=== PATIENT | female | born 1965 | race Caucasian/White ===

== ENCOUNTER 2019-03-16 19:08 | Emergency (ER) | payer OTHER ==
[~2019-03-16] VITALS: Ht 154.9 cm; Wt 57.2 kg
[2019-03-16 19:30] VITALS: Ht 154.9 cm; Wt 57.2 kg
[2019-03-16 20:45] VITALS: BP 101/59
== END 2019-03-16 20:45 | disposition home or self-care (01) ==
LOC: ED 19:08
DX: N39.0 Urinary tract infection, site not specified (principal); M79.10 Myalgia, unspecified site; E03.9 Hypothyroidism, unspecified
CPT/HCPCS: J1885

== ENCOUNTER 2019-04-08 14:28 | Emergency (ER) | payer OTHER ==
[~2019-04-08] VITALS: Ht 160 cm; Wt 77.6 kg
[2019-04-08 14:32] VITALS: Ht 160 cm; Wt 77.6 kg
[2019-04-08 16:50] LABS: BASOPHIL % 0.5 % (0-2); PLATELET COUNT 247 x10^3mcL (130-400); RED CELL DISTRIBUTION WIDTH 12.3 % (11.5-14.5)
[2019-04-08 16:53] LABS: CALCIUM 8.9 mg/dL (8.5-10.1); CARBON DIOXIDE 27.5 mmol/L (21-32); CHLORIDE SERUM 105 mmol/L (98-107); CREATININE SERUM 0.7 mg/dL (0.6-1.0); GFR1 > 60 mL/min; GLUCOSE SERUM 87 mg/dL (74-106); SODIUM SERUM 140 mmol/L (136-145)
[2019-04-08 16:57] LABS: ALBUMIN 3.6 g/dL (3.4-5.0); ALKALINE PHOSPHATASE 75 U/L (46-116); ALT/SGPT 26 U/L (14-59); AST/SGOT 21 U/L (15-37); BILIRUBIN TOTAL 0.3 mg/dL (0.20-1.00); TOTAL PROTEIN, SERUM 7.2 g/dL (6.4-8.2)
[2019-04-08 18:32] VITALS: BP 114/77
== END 2019-04-08 18:32 | disposition home or self-care (01) ==
LOC: ED 14:28
PROVIDERS: Specialist
DX: H54.7 Unspecified visual loss (principal); E03.9 Hypothyroidism, unspecified; Z88.8 Allergy status to other drugs, medicaments and biological substances
CPT/HCPCS: 36415

== ENCOUNTER 2019-05-29 15:08 | Emergency (ER) | payer OTHER ==
[~2019-05-29] VITALS: Ht 154.9 cm; Wt 56.7 kg
[2019-05-29 15:10] VITALS: Ht 154.9 cm; Wt 56.7 kg
[2019-05-29 16:58] VITALS: BP 153/101
== END 2019-05-29 16:58 | disposition home or self-care (01) ==
LOC: ED 15:08
DX: B34.9 Viral infection, unspecified (principal); E03.9 Hypothyroidism, unspecified; E11.9 Type 2 diabetes mellitus without complications; Z88.6 Allergy status to analgesic agent; Z88.5 Allergy status to narcotic agent
CPT/HCPCS: 82962; J1885

== ENCOUNTER 2019-08-02 13:49 | Emergency (ER) | payer OTHER ==
[~2019-08-02] VITALS: Ht 152.4 cm; Wt 58.5 kg
[2019-08-02 14:00] VITALS: Ht 152.4 cm; Wt 58.5 kg
[2019-08-02 15:19] VITALS: BP 110/65
== END 2019-08-02 15:19 | disposition home or self-care (01) ==
LOC: ED 13:49
DX: J11.1 Influenza due to unidentified influenza virus with other respiratory manifestations (principal); E03.9 Hypothyroidism, unspecified; Z88.8 Allergy status to other drugs, medicaments and biological substances; Z88.5 Allergy status to narcotic agent

== ENCOUNTER 2020-06-07 01:10 | Emergency (ER) | payer OTHER ==
[~2020-06-07] VITALS: Ht 152.4 cm; Wt 61.5 kg
[2020-06-07 02:16] VITALS: Ht 152.4 cm; Wt 61.5 kg
[2020-06-07 04:53] LABS: BASOPHIL % 0.8 % (0.2-1.3); PLATELET COUNT 285 x10^3mcL (179-408); RED CELL DISTRIBUTION WIDTH 13.6 % (12.3-17.7)
[2020-06-07 06:05] LABS: CALCIUM 9.5 mg/dL (8.5-10.1); CARBON DIOXIDE 26.8 mmol/L (21-32); CHLORIDE SERUM 102 mmol/L (98-107); CREATININE SERUM 0.8 mg/dL (0.6-1.0); GFR1 > 60 mL/min; GLUCOSE SERUM 97 mg/dL (74-106); POTASSIUM SERUM 4.2 mmol/L (3.5-5.1); SODIUM SERUM 137 mmol/L (136-145)
[2020-06-07 06:10] LABS: ALBUMIN 4.1 g/dL (3.4-5.0); ALKALINE PHOSPHATASE 103 U/L (46-116); ALT/SGPT 34 U/L (14-59); AST/SGOT 19 U/L (15-37); BILIRUBIN TOTAL 0.27 mg/dL (0.20-1.00); LIPASE 265 IU/L (73-393)
[2020-06-07 06:14] LABS: TOTAL PROTEIN, SERUM 8.3 g/dL (6.4-8.2)
[2020-06-07 08:50] VITALS: BP 99/52
== END 2020-06-07 08:50 | disposition home or self-care (01) ==
LOC: ED 01:10
PROVIDERS: Emergency Medicine
DX: R10.813 Right lower quadrant abdominal tenderness (principal); E03.9 Hypothyroidism, unspecified; Z90.710 Acquired absence of both cervix and uterus; Z88.8 Allergy status to other drugs, medicaments and biological substances
CPT/HCPCS: J1885; J2405; Q9967